=== PATIENT | female | born 1960 | race Caucasian/White ===

== ENCOUNTER 2019-04-03 10:08 | Outpatient (CLI) | payer OTHER ==
[2019-04-03 10:29] LABS: BASOPHILS # (AUTO) 0.1 10^3/uL (0.0-0.1); BASOPHILS % (AUTO) 0.8 %; EOSINOPHILS # (AUTO) 0.2 10^3/uL (0.0-0.7); EOSINOPHILS % (AUTO) 2.6 %; HGB - HEMOGLOBIN 13.1 g/dL (12.0-16.0); LYMPHOCYTES % (AUTO) 15.9 %; MEAN CORPUSCULAR HEMOGLOBIN 31.2 pg (27.0-31.0); MEAN CORPUSCULAR HGB CONC 33.3 g/dL (32.0-36.0); MEAN CORPUSCULAR VOLUME 93.6 fL (81.0-99.0); MEAN PLATELET VOLUME 8.8 fL (7.9-10.8); MONOCYTES # (AUTO) 0.5 10^3/uL (0.0-1.0); MONOCYTES % (AUTO) 8.3 %; NEUTROPHILS # (AUTO) 4.7 10^3/uL (1.5-6.6); NEUTROPHILS % (AUTO) 72.2 %; PLT - PLATELET COUNT 238 10^3/uL (130-450); RED CELL DISTRIBUTION WIDTH 12.4 % (12.0-15.0); WHITE BLOOD COUNT 6.5 x10^3/uL (4.8-10.8)
== END 2019-04-03 10:09 | disposition home or self-care (01) ==
LOC: LAB 10:08
PROVIDERS: ATTEND Obstetrics & Gynecology
DX: Z01.818 Encounter for other preprocedural examination (principal); N85.8 Other specified noninflammatory disorders of uterus
CPT/HCPCS: 36415; 85025; 86850; 86900; 86901

== ENCOUNTER 2019-04-05 12:28 | Day surgery (SDC) | payer OTHER ==
[~2019-04-05 12:28] MED LIST: ACETAMINOPHEN 1,000 MG/100 ML 100 ML IV ONE
[2019-04-05] MEDS ORDERED: MIDAZOLAM 2 MG/2 ML VIAL IVP ONE (12:29)
[2019-04-05] MEDS ORDERED: DEXAMETHASONE 4 MG/ML VIAL IVP ONE (12:29)
[2019-04-05] MEDS ORDERED: PROPOFOL 200 MG/20 ML VIAL IVP ONE (12:29)
[2019-04-05] MEDS ORDERED: KETOROLAC 30 MG/ML VIAL IVP ONE (12:29)
[2019-04-05] MEDS ORDERED: fentaNYL 100 MCG/2 ML VIAL IVP ONE (12:29)
--- NOTE | 2019-04-05 12:51 | ANESTHESIA ---
Pre-Anesthesia VS, & Labs - Diagnosis Uterine Mass - Procedure Myosure hysteroscopy, D&C, possible myomectomy/polypectomy Height 5 ft 8 in Weight (kg) 73.9 kg - NPO >8 hours - Is Patient ?: No - Lab Results Lab results reviewed: Yes Home Medications and Allergies Home Medications: Ambulatory Orders Anastrozole [Arimidex] 1 mg PO 03/28/19 Calcium Carbonate [Calcium] 600 mg PO 03/28/19 Levothyroxine [Synthroid] 100 mcg PO QDAC 03/28/19 Multivitamin [One Daily Multivitamin] 1 each PO 03/28/19 Anastrozole [Arimidex] 1 mg PO 03/28/19 Calcium Carbonate [Calcium] 600 mg PO 03/28/19 Levothyroxine [Synthroid] 100 mcg PO QDAC 03/28/19 Multivitamin [One Daily Multivitamin] 1 each PO 03/28/19 Allergies/Adverse Reactions: Allergies Allergy/AdvReac Type Severity Reaction Status Date / Time No Known Drug Allergies Allergy Verified 03/28/19 11:23 Anes History & Medical History - Anesthetic History Anesthesia Complications: reports: No previous complications Family history of Anesthesia Complications: Denies Family history of Malignant Hyperthermia: Denies - Medical History Cardiovascular: reports: None Pulmonary: reports: None Gastrointestinal: reports: None Urinary: reports: Other Musculoskeletal: reports: None Endocrine/Autoimmune: reports: HyPOthyroidism Skin: reports: None Other Past Medical History: breast cancer current. new portacath placed for therapy on 04/04/19 - Surgical History General:  Gynecologic: Other Other Past Surgical History: port placement at L chest 04/04/19 Exam General: Alert, Oriented x3, Cooperative Dental: WNL Mouth Openin Fingerbreadth Neck Mobility: Normal Mallampati classification: II Thyromental Distance: 4-6 cm Respiratory: Lungs clear, Normal breath sounds, No respiratory distress Cardiovascular: Regular rate Neurological: Normal speech Mental/Cognitive Status: Alert/Oriented X3, Normal for patient Cognitive Status: Within normal limits Plan Anesthesia Type: General Consent for Procedure(s) Verified and Reviewed: Yes Code Status: Attempt Resuscitation ASA classification: 3-Severe systemic disease Is this case an emergency?: No
[2019-04-05] MEDS ORDERED: LACTATED RINGERS 1,000 ML IV ONE (12:55)
[2019-04-05] MEDS ORDERED: LIDOCAINE-MPF 1% 30 ML VIAL ONE (13:37)
[2019-04-05] MEDS ORDERED: LIDOCAINE 1% 50 ML MDV SUBQ ONE (13:57)
[2019-04-05] MEDS ORDERED: HYDROmorphone 0.5 MG/0.5 ML SYRINGE IVP PRN (14:17)
[2019-04-05] MEDS ORDERED: oxyCODONE 5 MG TABLET PO PRN (14:17)
[2019-04-05] MEDS ORDERED: ONDANSETRON 4 MG/2 ML VIAL IVP PRN (14:17)
--- NOTE | 2019-04-05 14:23 | OPERATIVE REPORT ---
Operative Report - General Procedure Date: 04/05/19 Planned Procedure: diagnostic hysteroscopy, possible polypectomy versus myomectomy, D&C Pre-Op Diagnosis: uterine mass Procedure Performed: diagnostic hysteroscopy, hysteroscopic myomectomy, endocervical curettage Post Op Diagnosis: uterine mass - Procedure Note Primary Surgeon: Patrick Metcalf Anesthesia Technique: General LMA Pathology: 1. endometrial curettings, resected via myosure 2. endocervical curettage IV Fluids (mL): 600 Estimated Blood Loss (mL): 20 Urine Output (mL): 100 Indications: uterine mass in setting of patient with recurrent breast cancer Findings: Small anteverted uterus; solid feeling ?calcified nabothian on external cervix at 7 o'clock, palpable on bimanual but no visual abnormality. Large vascular solid mass on left uterine cavity wall. Smaller vascular mass on right uterine cavity wall. Lush polypoid tissue in endocervical canal. Complications: false track created during dilation posterior to cavity; no perforation - Other Other Information/Narrative: Procedure: After informed consent was assured, the patient was taken to the operating room where anesthesia was induced. Pt was placed in high dorsal lithotomy. An exam under anesthesia was performed which revealed a small anteverted uterus and a palpable firm irregularity on the cervix at 7 o'clock. No nodularity along rectovaginal septum, no adnexal mass. The patient was prepped and draped in the usual sterile fashion. Hysteroscopy equipment was set up and white balanced. A surgical timeout was performed. A speculum was inserted into the vagina, and a tenaculum was placed on the anterior lip of the cervix. Visually the cervix appeared normal. Hegar dilators were used to dilate the cervix up to 15 korean. The hysteroscope light was turned on and fluids were run through. The hysteroscope was passed through the cervix into the endometrial cavity, which was gently distended with fluid. A short false track into the myometrium posterior to the cavity was noted, but there was no apparent perforation, a blind ending was visualized and no bleeding was noted. A large irregular vascular mass protruding from the left uterine wall into the cavity. A smaller vascular mass was noted on the right uterine wall. The Myosure was passed through the operative sheath into the cavity and used to morcellate the masses under suction; the mass on the left felt firm whereas the mass on the right was more polypoid in texture. The mass on the left was resected down to th e level of the endometrial wall. Some bleeding was noted partway through resection of the mass on the right, obscuring visualization, so the procedure was concluded. The hysteroscope was withdrawn. Due to polypoid tissue noted within the endocervical canal, and endocervical curettage was then performed, returning scant fragments of tissue. The tenaculum was removed from the cervix with good hemostasis observed. All instruments were removed from the vagina, and a repeat bimanual exam revealed a small firm uterus and no instruments in the vaginal vault. The pt was taken to PACU in stable condition. Fluid deficit of 760 mL.
[2019-04-05 15:11] VITALS: BP 145/85
== END 2019-04-05 12:29 | disposition home or self-care (01) ==
LOC: SDS 12:28
PROVIDERS: ATTEND Obstetrics & Gynecology
PROC: 0UDB7ZX Extraction of Endometrium, Via Natural or Artificial Opening, Diagnostic (ICD-10-PCS; 2019-04-05)
PROC: 0UB98ZZ Excision of Uterus, Via Natural or Artificial Opening Endoscopic (ICD-10-PCS; principal; 2019-04-05 14:45)
DX: C79.82 Secondary malignant neoplasm of genital organs (principal); C50.912 Malignant neoplasm of unspecified site of left female breast; C77.4 Secondary and unspecified malignant neoplasm of inguinal and lower limb lymph nodes; Z78.0 Asymptomatic menopausal state; Z17.0 Estrogen receptor positive status [ER+]; Z79.811 Long term (current) use of aromatase inhibitors; Z92.21 Personal history of antineoplastic chemotherapy; Z92.3 Personal history of irradiation; Z90.13 Acquired absence of bilateral breasts and nipples; Z95.828 Presence of other vascular implants and grafts

== ENCOUNTER 2019-12-17 09:18 | Outpatient (CLI) | payer OTHER ==
--- NOTE | 2019-12-17 12:52 | Ultrasound Report ---
PROCEDURE: Retroperitoneal INDICATIONS: L HYDRONEPHROSIS TECHNIQUE: Real-time scanning was performed of the retroperitoneal organs, with image documentation. COMPARISON: None. FINDINGS: Kidneys: Kidneys are normal in size. Right kidney measures 10.6 cm long; left kidney measures 10.8 cm long. Right renal cortical thickness is 1.22 cm; left renal cortical thickness is 1.17 cm. No so lid masses, hydronephrosis, or nephrolithiasis. Urinary bladder: Prevoid volume 267 mL. Postvoid volume 17 mL. Both the left and right ureteral jets were visualized. Miscellaneous: No free abdominal fluid. IMPRESSION: 1. Normal kidneys. No hydronephrosis. 2. Minimal post void residual. Reviewed by: Rosalva Jiang MD on 12/17/2019 12:51 PM PDT Approved by: Rosalva Jiang MD on 12/17/2019 12:51 PM PDT Station ID: [id number]
== END 2019-12-17 09:19 | disposition home or self-care (01) ==
LOC: DI 09:18
PROVIDERS: ATTEND Urology
DX: N13.30 Unspecified hydronephrosis (principal)
CPT/HCPCS: 76770

== ENCOUNTER 2020-02-13 08:45 | Outpatient (CLI) | payer OTHER ==
--- NOTE | 2020-02-13 15:11 | MRI Report ---
PROCEDURE: Shoulder RT W/O INDICATIONS: RIGHT SHOULDER PAIN TECHNIQUE: Noncontrast oblique coronal T2 fast spin echo with fat saturation, oblique sagittal T1 spin echo and T2 fast spin echo with fat saturation, axial T1 spin echo and T2 fast spin echo with fat saturation t hrough the shoulder. COMPARISON: None. FINDINGS: Image quality: There is motion artifact limiting evaluation. Rotator cuff: There is tendinopathy of the distal supraspinatus and infraspinatus. A focal full-thic kness tear is demonstrated within the distal supraspinatus involving the insertion of its anterior fi bers with proximal extension more posteriorly up to 1 cm from its insertion. The tear measures approx imately 1.5 cm in anteroposterior dimension. There is retraction of the torn fibers by approximately 0.8 cm. The infraspinatus appears intact. The subscapularis demonstrates tendinopathy with mild parti al tearing involving the deep fibers distally at its insertion. The teres minor appears intact. No fa tty muscle atrophy. Bones and bursae: No bone marrow contusions or fractures. There is moderate acromioclavicular joint degeneration. The acromion demonstrates conventional anatomy, without an os acromiale. A small amoun t of subacromial/subdeltoid bursal fluid is present. There is a lobulated joint recess or cyst in the region of the subcoracoid recess measuring up to approximately 2.8 cm. Capsule and soft tissues: In the absence of intra-articular contrast, the labrum and glenohumeral li gaments appear intact. The long head of the biceps tendon demonstrates slight medial subluxation sec ondary to partial tearing of the subscapularis. There is mild tendinopathy within the proximal biceps tendon with mild longitudinal intrasubstance partial tearing. IMPRESSION: 1. Tendinopathy of the supraspinatus and infraspinatus with a focal full-thickness tear involving the anterior fibers of the supraspinatus. There is associated mild tendinous retraction of the torn fibe rs as described. 2. Tendinopathy of the subscapularis with mild partial tearing at its insertion. 3. Associated mild tendinopathy and mild longitudinal partial tearing with slight medial subluxation of the biceps tendon proximally. 4. Moderate acromioclavicular joint degeneration with mild subacromial/subdeltoid bursitis. 5. Probable loculated joint recess in the region of the subcoracoid recess versus a ganglion cyst. Reviewed by: Guillaume Moffett MD on 02/13/2020 3:09 PM PDT Approved by: Guillaume Moffett MD on 02/13/2020 3:09 PM PDT Station ID: [id number]
== END 2020-02-13 08:46 | disposition home or self-care (01) ==
LOC: DI 08:45
PROVIDERS: ATTEND Family Medicine
DX: M75.121 Complete rotator cuff tear or rupture of right shoulder, not specified as traumatic (principal); M75.51 Bursitis of right shoulder; M19.011 Primary osteoarthritis, right shoulder

== ENCOUNTER 2021-07-12 21:33 | Emergency (ER) | payer OTHER ==
[2021-07-12] MEDS ORDERED: OXYMETAZOLINE HCL 100 SPRAYS BOTTLE NAS STA (21:40)
[2021-07-12] MEDS ORDERED: SILVER NITRATE APPLICATOR TOP STA (21:47)
--- NOTE | 2021-07-12 21:57 | ED Physician Documentation ---
PD HPI HEENT - Stated complaint Stated Complaint: NOSE BLEED - Chief complaint Chief Complaint: Heent - History obtained from History obtained from: Patient - Additional information Additional information: 61-year-old woman who is on immunotherapy for breast cancer developed a nosebleed from the right side about an hour ago. No sinus symptoms or pain otherwise. No history of bleeding diathesis or thrombocytopenia. She is getting frequent labs with her oncologist. 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 - Present Medications Home Medications: Ambulatory Orders Medication Instructions Recorded Confirmed Anastrozole [Arimidex] 1 mg PO 03/28/19 Calcium Carbonate [Calcium] 600 mg PO 03/28/19 Levothyroxine [Synthroid] 100 mcg PO QDAC 03/28/19 04/05/19 Multivitamin [One Daily 1 each PO 03/28/19 Multivitamin] - Allergies Allergies/Adverse Reactions: Allergies Allergy/AdvReac Type Severity Reaction Status Date / Time No Known Drug Allergies Allergy Verified 07/12/21 21:37 PD ED PE NORMAL - Vitals Vital signs reviewed: Yes - General General: Alert and oriented X 3, No acute distress - HEENT HEENT: Other (Bleeding from Kiesselbach's plexus on the right) - Neuro Neuro: Alert and oriented X 3, Normal speech - Psych Psych: Normal mood, Normal affect Results - Vitals Vitals: Vital Signs - 24 hr 07/12/21 21:37 Temperature 36.5 C Heart Rate 100 Respiratory 16 Rate Blood Pressure 130/90 H O2 Saturation 94 Oxygen O2 Source Room air Procedures - Epistaxis Site: Right Preparation: Clots removed, Afrin, Lidocaine Treatment: Silver Nitrate Other: Observed - no bleeding Departure - Departure Disposition: 01 Home, Self Care Clinical Impression: Epistaxis Condition: Good Record reviewed to determine appropriate education?: Yes Instructions: Nosebleed Comments: You were seen tonight for a nosebleed from the right Kiesselbach's plexus, we were able to stop it with a combination of vasoconstrictors (oxymetazoline and epinephrine with lidocaine) and cautery with silver nitrate. If you develop recurrent bleeding used 2 sprays of the oxymetazoline and put the nasal clamp on for 10 to 20 minutes. If you continue to bleed despite that please return for reevaluation. If you continue to have minor nosebleeds, talk with your doctor about referral to ENT.
--- NOTE | 2021-07-12 22:59 | ED Physician Documentation ---
ED Addendum - Addendum Addendum: 07/12/21 22:58 61-year-old female with acute anterior epistaxis had cautery done today by Dr. Sutherland and when she got out into the waiting room she bent over to put her mask on and her nose started bleeding again. She is placed the clamp back on the nose and has had another 2 sprays of oxymetazoline and continues to have an issue with bleeding. She is brought back into the emergency department and we have placed a anterior 4.5 cm Rhino Rocket. I have instructed the patient in i ts use and have instructed her that this will need to be removed sometime tomorrow.
[2021-07-12 23:01] VITALS: BP 128/88
== END 2021-07-12 23:00 | disposition home or self-care (01) ==
LOC: ED 21:33
DX: R04.0 Epistaxis (principal); C50.919 Malignant neoplasm of unspecified site of unspecified female breast; Z79.899 Other long term (current) drug therapy
CPT/HCPCS: 30901; 99282; A9270

== ENCOUNTER 2023-06-20 10:30 | Outpatient (CLI) | payer OTHER ==
--- NOTE | 2023-06-20 10:20 | XRAY Report ---
PROCEDURE: Hand 3+V LT INDICATIONS: OTHER SPRAIN OF LEFT THUMB TECHNIQUE: 3 views of the hand(s) acquired. COMPARISON: None. FINDINGS: Bones: No fractures or dislocations. No suspicious bony lesions. Soft tissues: No suspicious soft tissue calcifications or masses. IMPRESSION: No acute bony abnormality. Reviewed by: Zacarias Garza MD on 06/20/2023 10:19 AM [facility] Approved by: Zacarias Garza MD on 06/20/2023 10:19 AM [facility] Station ID: [id number]
== END 2023-06-20 10:45 | disposition home or self-care (01) ==
LOC: DI.N 10:30
PROVIDERS: ATTEND Physician Assistant Medical
DX: S63.682A Other sprain of left thumb, initial encounter (principal)